=== PATIENT | female | born 1995 | race American Indian/Alaskan Native ===

== ENCOUNTER 2020-11-30 18:49 | Outpatient (CLI) | payer SELFPAY ==
[2020-11-30 19:18] VITALS: BP 105/60
[2020-11-30] MEDS ORDERED: LACTATED RINGERS 1,000 ML IV SCH (19:45)
[2020-11-30 20:17] LABS: Basophils % (Auto) 0.5 % (0.0-1.8); Eosinophils # (Auto) 0.1 K/mm3 (0.0-0.4); Hematocrit 34.6 % (30.3-42.9); Hemoglobin 11.3 gm/dl (10.1-14.3); Lymphocytes # (Auto) 2.2 K/mm3 (1.2-5.4); Lymphocytes % (Auto) 21.8 % (13.4-35.0); Mean Corpuscular HGB Conc 33 % (30-34); Mean Corpuscular Volume 97 fl (79-97); Monocytes # (Auto) 1.1 K/mm3 (0.0-0.8); Monocytes % (Auto) 10.8 % (0.0-7.3); Platelet Count 215 K/mm3 (140-440); Red Blood Count 3.59 M/mm3 (3.65-5.03); Red Cell Distribution Width 13.6 % (13.2-15.2)
[2020-11-30 20:34] LABS: Alanine Aminotransferase 11 units/L (7-56); Albumin 3.4 g/dL (3.9-5); Blood Urea Nitrogen 7 mg/dL (7-17); Calcium 9.3 mg/dL (8.4-10.2); Hemolysis Index 45
[2020-11-30 20:36] LABS: BUN/Creatinine Ratio 14
[2020-11-30] MEDS ORDERED: LACTATED RINGERS 500 ML IV ONE (20:38)
[2020-11-30] MEDS ORDERED: MORPHINE 2 MG/1 ML INJ IV ONE (20:45)
[2020-11-30 20:52] LABS: Bacteria,Urine 2+ /HPF (Negative); Bilirubin,Urine NEG (Negative); Blood,Urine NEG (Negative); Color,Urine Yellow (Yellow); Hyaline Casts,Urine 2 /LPF; Mucus,Urine 2+ /HPF
--- NOTE | 2020-11-30 21:35 | Ultrasound Report ---
ULTRASOUND ABDOMEN, LIMITED (RIGHT UPPER QUADRANT) INDICATION: upper abdomen COMPARISON: None available. LIMITATIONS: Per the technologist limited due to patient's FINDINGS: Pancreas: Visualized portion shows no significant abnormality. Liver: Normal. Gallbladder: Multiple gallstones are seen. This includes gallstones in the neck of the gallbladder. N o definite wall thickening is seen. No fluid is seen within or surrounding the wall. Bile ducts: Normal. Common Bile Duct measures 3 mm. Right Kidney: Visualized portions show no abnormality. Free fluid: None. Additional Findings: None. IMPRESSION: Cholelithiasis without definite acute change seen Signer Name: Mina Omalley MD Signed: 11/30/2020 9:30 PM Workstation Name: [id number]
== END 2020-11-30 21:40 | disposition home or self-care (01) ==
LOC: TRG 18:49 → LD 19:00 → TRG 21:40
PROVIDERS: ATTEND Obstetrics & Gynecology
DX: O26.893 Other specified pregnancy related conditions, third trimester (principal); R10.10 Upper abdominal pain, unspecified; Z3A.36 36 weeks gestation of pregnancy
CPT/HCPCS: 36415; 59025; 76705; 80053; 81001; 85025; 87086; 96365; J2270; J7120; 96360